=== PATIENT | female | born 1940 | race Hispanic/Latino ===

== ENCOUNTER → 2020-05-01 | Outpatient (CLI) | payer MEDICARE ==
[~2020-05-01] MED LIST: IOHEXOL-350 50ML VIAL IV ONE
== END | disposition home or self-care (01) ==
LOC: RAH 11:36
PROVIDERS: ATTEND Family Medicine
DX: E04.9 Nontoxic goiter, unspecified (principal); I65.23 Occlusion and stenosis of bilateral carotid arteries
CPT/HCPCS: 70492; Q9967

== ENCOUNTER 2020-07-09 14:29 | Inpatient (IN) | payer MEDICARE ==
[2020-07-09 15:34] LABS: BASOPHILS % (AUTO) 0.2 % (0.0-5.0); EOSINOPHILS % (AUTO) 0.3 % (0.0-8.0); HEMATOCRIT 39.3 % (36-48); LYMPHOCYTES % (AUTO) 4.2 % (21.0-51.0); MEAN CORPUSCULAR HEMOGLOBIN 29.5 pg (27.0-33.0); MEAN CORPUSCULAR HGB CONC 34.9 g/dL (32.0-36.0); MEAN CORPUSCULAR VOLUME 84.7 fL (79-99); MONOCYTES % (AUTO) 7.6 % (3.0-13.0); NEUTROPHILS % (AUTO) 86.5 % (40.0-77.0); PLATELET COUNT (AUTO) 533 K/uL (130-400); RED BLOOD CELL COUNT(AUTO) 4.64 MIL/uL (4.00-5.50); RED CELL DISTRIBUTION WIDTH 13.2 % (11.0-15.5)
[2020-07-09 15:55] LABS: CREATININE 0.7 mg/dL (0.5-1.5); POTASSIUM 3.3 mmol/L (3.5-5.1)
[2020-07-09 15:59] LABS: ALBUMIN 2.4 g/dL (3.5-5.0); TOTAL PROTEIN, SERUM 7.5 g/dL (6.0-8.3)
[2020-07-09] MEDS ORDERED: ENOXAPARIN SODIUM 60 MG/0.6 ML SQ ONE (16:28)
[2020-07-09] MEDS ORDERED: METHYLPREDNISOLONE SOD SUCC 40MG/ML 1ML ONE (16:28)
[2020-07-09] MEDS ORDERED: AZITHROMYCIN 500MG+NS 250ML 250 ML IV ONE (16:29)
[2020-07-09] MEDS ORDERED: CEFTRIAXONE SODIUM 1 GM ONE (16:29)
[2020-07-09 18:18] LABS: APPEARANCE,URINE Clear (CLEAR); BILIRUBIN,URINE Negative (NEGATIVE); COLOR,URINE Yellow (YELLOW); GLUCOSE, URINE (UA) Negative (NEGATIVE); KETONES,URINE 40 mg/dL (NEGATIVE); LEUKOCYTE ESTERASE ,URINE Large (NEGATIVE); NITRATE,URINE Negative (NEGATIVE); OCCULT BLOOD,URINE Negative (NEGATIVE); PROTEIN,URINE POS 1+ mg/dL (NEGATIVE)
[2020-07-09 18:53] LABS: BACTERIA,URINE Moderate /HPF (None Seen); RBC,URINE None Seen /HPF (0-1); WBC,URINE 51-100 /HPF (0-1)
[2020-07-09 18:55] VITALS: BP 131/78
[2020-07-09] MEDS ORDERED: DOXYCYCLINE 100MG+NS 250ML IV SCH (19:00)
[2020-07-09] MEDS ORDERED: HYDRALAZINE HCL 20 MG/ML VIAL IV PRN (19:00)
[2020-07-09] MEDS ORDERED: ONDANSETRON HCL 4 MG/2 ML VIAL IVP PRN (19:00)
[2020-07-09] MEDS ORDERED: ERGOCALCIFEROL (VITAMIN D2) 50,000 UNIT CAPSULE PO ONE (19:00)
[2020-07-09] MEDS ORDERED: LACTULOSE 20 GM/30 ML UDCUP PO PRN (19:00)
[2020-07-09] MEDS: CEFTRIAXONE SODIUM 1 GM IVP SCH (19:00)
[2020-07-09 20:52] VITALS: BP 142/87
[2020-07-09] MEDS: ENOXAPARIN SODIUM 60 MG/0.6 ML SQ SCH (21:00)
[2020-07-09] MEDS: LACTATED RINGERS 1000ML 1,000 ML IV SCH (21:04)
[2020-07-09] MEDS: FAMOTIDINE 20MG TAB 20 MG TAB PO SCH (21:11)
[2020-07-09 23:54] VITALS: BP 120/67
[2020-07-10 03:53] VITALS: BP 105/54
[2020-07-10 03:55] LABS: ABG BASE EXCESS 0.1 mmol/L (-2.0-3.0); ABG OXYGEN SATURATION 94.9 % (95.0-99.0); ABG PCO2 37 mmHg (32-45)
[2020-07-10 05:47] LABS: BASOPHILS % (AUTO) 0.3 % (0.0-5.0); HEMATOCRIT 39.3 % (36-48); LYMPHOCYTES % (AUTO) 5.8 % (21.0-51.0); MEAN CORPUSCULAR HEMOGLOBIN 28.9 pg (27.0-33.0); MEAN CORPUSCULAR HGB CONC 34.6 g/dL (32.0-36.0); MEAN CORPUSCULAR VOLUME 83.4 fL (79-99); MONOCYTES % (AUTO) 3.2 % (3.0-13.0); NEUTROPHILS % (AUTO) 89.1 % (40.0-77.0); PLATELET COUNT (AUTO) 562 K/uL (130-400); RED BLOOD CELL COUNT(AUTO) 4.71 MIL/uL (4.00-5.50); RED CELL DISTRIBUTION WIDTH 12.8 % (11.0-15.5); WHITE BLOOD COUNT (AUTO) 7.5 K/uL (4.8-10.8)
[2020-07-10 06:28] LABS: ALANINE AMINOTRANSFERASE 10 U/L (12-78); ALBUMIN 2.1 g/dL (3.5-5.0); ASPARTATE AMINOTRANSFERASE 22 U/L (10-37); BILIRUBIN,DIRECT 0.2 mg/dL (0.0-0.3); BILIRUBIN,TOTAL 0.6 mg/dL (0.2-1.0); CARBON DIOXIDE 25 mmol/L (21-32); CHLORIDE 98 mmol/L (101-111); CREATININE 0.6 mg/dL (0.5-1.5); GLOMERULAR FILTR. RATE CALC 103 mL/min (>60); GLUCOSE,RANDOM 133 mg/dL (70-105); PHOSPHORUS 3.8 mg/dL (2.5-4.9); POTASSIUM 3.7 mmol/L (3.5-5.1); SODIUM SERUM 134 mmol/L (136-145); TOTAL PROTEIN, SERUM 7.3 g/dL (6.0-8.3); UREA NITROGEN, BLOOD 15 mg/dL (7-18)
[2020-07-10] MEDS: ASCORBIC ACID 500 MG TAB PO SCH (08:21)
[2020-07-10] MEDS: ZINC SULFATE 220 CAPSULE PO SCH (08:21)
[2020-07-10] MEDS: FAMOTIDINE 20MG TAB 20 MG TAB PO SCH ×2 (08:21→21:43)
[2020-07-10] MEDS: DOXYCYCLINE HYCLATE 100 MG TABLET PO SCH ×2 (08:21→21:45)
[2020-07-10] MEDS: CEFTRIAXONE SODIUM 1 GM IVP SCH ×2 (08:21→18:35)
[2020-07-10] MEDS: ENOXAPARIN SODIUM 60 MG/0.6 ML SQ SCH ×2 (08:23→21:45)
[2020-07-10] MEDS: DEXAMETHASONE SOD PHOSPHATE 4 MG/ML 1ML VIAL IVP SCH (08:24)
[2020-07-10 08:35] VITALS: BP_SYST 135; BP_SYST 156; BP_DIAS 75; BP_DIAS 86
[2020-07-10 12:08] VITALS: BP 136/70
[2020-07-10] MEDS: LACTATED RINGERS 1000ML 1,000 ML IV SCH (15:03)
--- NOTE | 2020-07-10 15:42 | NUR ---
RD NOTIFICATION Pt admitted PUI COVID-19. History DM, HTN. Pt with poor Po intake x 1 week prior to admit. Heart Healthy diet order in place. Monitored labs: BG 158, Alb 2.1. Mild to moderate fat/muscle loss. Pt Height unavailable to calculate Pt nutrition needs Recommend 75gm CCD Recommend Glucerna TID RD to continue to monitor. Please notify as additional nutrition concerns arise. Thank you. Addendum: 07/10/20 at [address] Amended: Links added.
--- NOTE | 2020-07-10 16:13 | NUR ---
02 saturation 1. Patient on 3L sitting up leaning slightly forward 02 sat 93-94 % 2. Lying in supine position on 4L 02 sats 93-94% 3. Prone position 2L 95% 4. Patient instructed to lay in prone position for as many hours as she could tolerate
[2020-07-10 16:48] VITALS: BP 132/56
--- NOTE | 2020-07-10 18:41 | NUR ---
DCP CM unable to meet with pt, called friend William Cui [phone], discussed dc plans. As per friend pt is independent prior to getting sick 2 weeks ago, lives at a rental home alone, friend lives close by. Denies any equipments/services. CM asked friend if pt has any family close by. Friend verbalized the only family he knows is a mother that a few years back and a sister that is in a custodial facility. Feels safe to go back home, pt arranged own needs, pt was still very independent and drives self until recently, but friend and landlord able to assist with transportation as necessary, pt's car is at pt's home. Friend verbalized him and pt's landlord had been friends for many years. Will reassess pt for possible placement once closer to dc if necessary. DC plan to home vs hh/snf. CM to cont to follow up. Addendum: 07/10/20 at 1846 by SAULO LEVY LVN CM Amended: Links added.
[2020-07-10 19:00] VITALS: BP 145/61
--- NOTE | 2020-07-10 20:05 | NUR ---
INFORMED ON-CALL [facility] ( MINI SANTIAGO) REGARDING BLOOD SUGAR RESULT OF PATIENT THAT IS 255 AND WAS 210 AT DAY SHIFT. ORDERED TO PLACE PT ON HYPERGLYCEMIA/ HYPLOGLYCEMIA PROTOCOL WITH 1/2 SS.
[2020-07-10] MEDS ORDERED: DEXTROSE 50%-WATER 50 ML DISP.SYRIN IV PRN (20:15)
[2020-07-10] MEDS ORDERED: GLUCAGON 1MG KIT 1 MG ML IM PRN (20:15)
[2020-07-10] MEDS ORDERED: INSULIN HUMULIN R 100 UNIT/ML 3ML SQ SCH (21:00)
[2020-07-10] MEDS ORDERED: INSULIN HUMULIN R 100 UNIT/ML 3ML ONE (21:40)
[2020-07-11] VITALS: BP 146/75
[2020-07-11] MEDS: ACETAMINOPHEN 325 MG TAB PO PRN (03:31)
[2020-07-11 03:55] VITALS: BP 137/64
[2020-07-11] MEDS: INSULIN HUMULIN R 100 UNIT/ML 3ML SQ SCH ×4 (06:10→21:00)
[2020-07-11] MEDS: CEFTRIAXONE SODIUM 1 GM IVP SCH ×2 (06:10→18:45)
[2020-07-11 08:45] VITALS: BP 144/64
[2020-07-11] MEDS: ENOXAPARIN SODIUM 60 MG/0.6 ML SQ SCH ×2 (09:37→23:38)
[2020-07-11] MEDS: FAMOTIDINE 20MG TAB 20 MG TAB PO SCH ×2 (09:38→23:37)
[2020-07-11] MEDS: DOXYCYCLINE HYCLATE 100 MG TABLET PO SCH ×2 (09:38→23:37)
[2020-07-11] MEDS: DEXAMETHASONE SOD PHOSPHATE 4 MG/ML 1ML VIAL IVP SCH (09:38)
[2020-07-11] MEDS: ASCORBIC ACID 500 MG TAB PO SCH (09:38)
[2020-07-11] MEDS: ZINC SULFATE 220 CAPSULE PO SCH (09:38)
[2020-07-11] MEDS: LACTATED RINGERS 1000ML 1,000 ML IV SCH (11:15)
[2020-07-11 12:30] VITALS: BP 143/62
[2020-07-11 16:34] VITALS: BP 152/69
[2020-07-11 20:00] VITALS: BP 144/83
--- NOTE | 2020-07-11 20:00 | NUR ---
Received the patient Received the patient A/o x3 lying awake in bed with 02 on. Patient is in no acute distress at this time and has no complaints of pain or discomforts. Plan of care and safety precautions reviewed with patient an patient verbalized understanding. Bed in lowest position, 2 side rails up, wheels locked. Patient's personal items and call light are within reach. Will continue with plan of care.
[2020-07-12] VITALS (7 sets, daily range): BP systolic 122–157; BP diastolic 67–80
--- NOTE | 2020-07-12 01:47 | NUR ---
Patient received 2 units of plasma. Patient currently resting.
[2020-07-12 03:20] LABS: ABG BASE EXCESS 3.3 mmol/L (-2.0-3.0); ABG HCO3 25.9 mmol/L (21.0-28.0); ABG OXYGEN SATURATION 91.4 % (95.0-99.0); ABG PCO2 33 mmHg (32-45)
[2020-07-12 04:33] LABS: BASOPHILS % (AUTO) 0.1 % (0.0-5.0); EOSINOPHILS % (AUTO) 0.8 % (0.0-8.0); HEMATOCRIT 38.6 % (36-48); LYMPHOCYTES % (AUTO) 4.3 % (21.0-51.0); MEAN CORPUSCULAR HEMOGLOBIN 28.6 pg (27.0-33.0); MEAN CORPUSCULAR HGB CONC 34.5 g/dL (32.0-36.0); MONOCYTES % (AUTO) 6.1 % (3.0-13.0); NEUTROPHILS % (AUTO) 87.1 % (40.0-77.0); PLATELET COUNT (AUTO) 670 K/uL (130-400); RED BLOOD CELL COUNT(AUTO) 4.65 MIL/uL (4.00-5.50); RED CELL DISTRIBUTION WIDTH 13.2 % (11.0-15.5); WHITE BLOOD COUNT (AUTO) 15.8 K/uL (4.8-10.8)
[2020-07-12 04:56] LABS: ALBUMIN 2.5 g/dL (3.5-5.0); BILIRUBIN,TOTAL 0.4 mg/dL (0.2-1.0); CREATININE 0.7 mg/dL (0.5-1.5); MAGNESIUM 1.5 mg/dL (1.80-2.40); PHOSPHORUS 2.4 mg/dL (2.5-4.9); TOTAL PROTEIN, SERUM 7.5 g/dL (6.0-8.3)
[2020-07-12 05:01] LABS: POTASSIUM 2.9 mmol/L (3.5-5.1)
[2020-07-12] MEDS ORDERED: LIDOCAINE HCL-MPF 1% 2ML VIAL IV PRN (06:30)
[2020-07-12] MEDS ORDERED: POTASSIUM CHLORIDE 10% ELIXIR 20 MEQ/15 ML UDCUP PO PRN (06:30)
[2020-07-12] MEDS ORDERED: POTASSIUM CHLORIDE 20MEQ/100ML 100 ML IV PRN (06:30)
[2020-07-12] MEDS: INSULIN HUMULIN R 100 UNIT/ML 3ML SQ SCH ×4 (07:30→20:31)
[2020-07-12] MEDS: CEFTRIAXONE SODIUM 1 GM IVP SCH ×2 (08:25→20:30)
[2020-07-12] MEDS: DOXYCYCLINE HYCLATE 100 MG TABLET PO SCH ×2 (08:26→20:30)
[2020-07-12] MEDS: ZINC SULFATE 220 CAPSULE PO SCH (08:26)
[2020-07-12] MEDS: DEXAMETHASONE SOD PHOSPHATE 4 MG/ML 1ML VIAL IVP SCH (08:26)
[2020-07-12] MEDS: ASCORBIC ACID 500 MG TAB PO SCH (08:26)
[2020-07-12] MEDS: POTASSIUM CHLORIDE 20 MEQ ERTAB PO PRN ×3 (08:26→15:25)
[2020-07-12] MEDS: LACTATED RINGERS 1000ML 1,000 ML IV SCH (08:27)
[2020-07-12] MEDS: ENOXAPARIN SODIUM 60 MG/0.6 ML SQ SCH ×2 (08:27→20:35)
[2020-07-12] MEDS: FAMOTIDINE 20MG TAB 20 MG TAB PO SCH ×2 (08:27→20:30)
[2020-07-12] MEDS ORDERED: FUROSEMIDE 10 MG/ML 4ML VIAL IV SCH (08:30)
[2020-07-12] MEDS ORDERED: MAGNESIUM 2GM PREMIX 50ML 50 ML IV PRN (11:15)
[2020-07-13 03:32] LABS: ABG BASE EXCESS 2.1 mmol/L (-2.0-3.0); ABG HCO3 26.5 mmol/L (21.0-28.0); ABG OXYGEN SATURATION 89.8 % (95.0-99.0); ABG PCO2 40 mmHg (32-45)
[2020-07-13 03:42] VITALS: BP 119/65
[2020-07-13] MEDS: LACTATED RINGERS 1000ML 1,000 ML IV SCH ×2 (04:43→23:57)
[2020-07-13] MEDS: ACETAMINOPHEN 325 MG TAB PO PRN (04:44)
[2020-07-13] MEDS: CEFTRIAXONE SODIUM 1 GM IVP SCH ×2 (06:17→17:14)
[2020-07-13 07:06] LABS: BASOPHILS % (AUTO) 0.2 % (0.0-5.0); EOSINOPHILS % (AUTO) 1.2 % (0.0-8.0); HEMATOCRIT 39.6 % (36-48); LYMPHOCYTES % (AUTO) 5.8 % (21.0-51.0); MEAN CORPUSCULAR HEMOGLOBIN 28.4 pg (27.0-33.0); MEAN CORPUSCULAR HGB CONC 33.6 g/dL (32.0-36.0); MEAN CORPUSCULAR VOLUME 84.4 fL (79-99); MONOCYTES % (AUTO) 4.2 % (3.0-13.0); NEUTROPHILS % (AUTO) 86.7 % (40.0-77.0); PLATELET COUNT (AUTO) 621 K/uL (130-400); RED BLOOD CELL COUNT(AUTO) 4.69 MIL/uL (4.00-5.50); RED CELL DISTRIBUTION WIDTH 13.7 % (11.0-15.5); WHITE BLOOD COUNT (AUTO) 14.6 K/uL (4.8-10.8)
[2020-07-13] MEDS: INSULIN HUMULIN R 100 UNIT/ML 3ML SQ SCH ×4 (07:30→21:24)
[2020-07-13 07:36] LABS: ALBUMIN 2.3 g/dL (3.5-5.0); BILIRUBIN,TOTAL 0.4 mg/dL (0.2-1.0); CREATININE 0.7 mg/dL (0.5-1.5); MAGNESIUM 2.3 mg/dL (1.80-2.40); PHOSPHORUS 2.9 mg/dL (2.5-4.9); POTASSIUM 4.2 mmol/L (3.5-5.1); TOTAL PROTEIN, SERUM 7.3 g/dL (6.0-8.3)
[2020-07-13 08:00] VITALS: BP 143/72
[2020-07-13] MEDS: FAMOTIDINE 20MG TAB 20 MG TAB PO SCH ×2 (09:53→19:58)
[2020-07-13] MEDS: ZINC SULFATE 220 CAPSULE PO SCH (09:53)
[2020-07-13] MEDS: DOXYCYCLINE HYCLATE 100 MG TABLET PO SCH ×2 (09:53→19:58)
[2020-07-13] MEDS: DEXAMETHASONE SOD PHOSPHATE 4 MG/ML 1ML VIAL IVP SCH (09:53)
[2020-07-13] MEDS: ASCORBIC ACID 500 MG TAB PO SCH (09:53)
[2020-07-13] MEDS: ENOXAPARIN SODIUM 60 MG/0.6 ML SQ SCH ×2 (09:54→19:58)
[2020-07-13 11:19] VITALS: BP 135/76
[2020-07-13 16:00] VITALS: BP 132/66
[2020-07-13 20:05] VITALS: BP 135/73
[2020-07-14 00:27] VITALS: BP 136/74
[2020-07-14 04:00] VITALS: BP 154/72
--- NOTE | 2020-07-14 05:27 | NUR ---
No acute respiratory distress this shift. POX 99% on 10L NRB mask when lying prone. Patient had a restful night.
[2020-07-14] MEDS: CEFTRIAXONE SODIUM 1 GM IVP SCH ×2 (06:04→18:18)
[2020-07-14] MEDS: INSULIN HUMULIN R 100 UNIT/ML 3ML SQ SCH ×4 (07:30→21:25)
[2020-07-14 08:00] VITALS: BP 127/59
[2020-07-14 08:06] LABS: ABG BASE EXCESS 1.1 mmol/L (-2.0-3.0); ABG HCO3 24.5 mmol/L (21.0-28.0); ABG PCO2 35 mmHg (32-45)
[2020-07-14 08:12] LABS: BASOPHILS % (AUTO) 0.2 % (0.0-5.0); EOSINOPHILS % (AUTO) 0.8 % (0.0-8.0); HEMATOCRIT 38.3 % (36-48); MEAN CORPUSCULAR HEMOGLOBIN 28.7 pg (27.0-33.0); MEAN CORPUSCULAR HGB CONC 33.9 g/dL (32.0-36.0); MEAN CORPUSCULAR VOLUME 84.5 fL (79-99); MONOCYTES % (AUTO) 5.9 % (3.0-13.0); NEUTROPHILS % (AUTO) 85.3 % (40.0-77.0); PLATELET COUNT (AUTO) 584 K/uL (130-400); RED BLOOD CELL COUNT(AUTO) 4.53 MIL/uL (4.00-5.50); RED CELL DISTRIBUTION WIDTH 13.5 % (11.0-15.5); WHITE BLOOD COUNT (AUTO) 16.1 K/uL (4.8-10.8)
[2020-07-14 08:29] LABS: ALBUMIN 2.1 g/dL (3.5-5.0); BILIRUBIN,TOTAL 0.3 mg/dL (0.2-1.0); CREATININE 0.7 mg/dL (0.5-1.5); MAGNESIUM 1.9 mg/dL (1.80-2.40); PHOSPHORUS 2.7 mg/dL (2.5-4.9); POTASSIUM 4.1 mmol/L (3.5-5.1); TOTAL PROTEIN, SERUM 6.8 g/dL (6.0-8.3)
[2020-07-14] MEDS: DOXYCYCLINE HYCLATE 100 MG TABLET PO SCH ×2 (09:24→21:04)
[2020-07-14] MEDS: DEXAMETHASONE SOD PHOSPHATE 4 MG/ML 1ML VIAL IVP SCH (09:24)
[2020-07-14] MEDS: ZINC SULFATE 220 CAPSULE PO SCH (09:25)
[2020-07-14] MEDS: FAMOTIDINE 20MG TAB 20 MG TAB PO SCH ×2 (09:25→21:04)
[2020-07-14] MEDS: ASCORBIC ACID 500 MG TAB PO SCH (09:25)
[2020-07-14] MEDS: ENOXAPARIN SODIUM 60 MG/0.6 ML SQ SCH ×2 (09:25→21:04)
[2020-07-14 11:08] VITALS: BP 135/75
[2020-07-14 16:00] VITALS: BP 121/57
[2020-07-14 20:00] VITALS: BP 146/76
[2020-07-14] MEDS: LACTATED RINGERS 1000ML 1,000 ML IV SCH (21:07)
[2020-07-15] VITALS (7 sets, daily range): BP systolic 121–151; BP diastolic 65–76
[2020-07-15 04:33] LABS: ABG BASE EXCESS 2.9 mmol/L (-2.0-3.0); ABG HCO3 25.7 mmol/L (21.0-28.0); ABG OXYGEN SATURATION 88.3 % (95.0-99.0); ABG PCO2 34 mmHg (32-45)
[2020-07-15] MEDS: CEFTRIAXONE SODIUM 1 GM IVP SCH ×2 (06:03→18:37)
[2020-07-15] MEDS: INSULIN HUMULIN R 100 UNIT/ML 3ML SQ SCH ×4 (07:30→20:27)
[2020-07-15 07:44] LABS: MYOGLOBIN 29 ng/mL (10-92); PHOSPHORUS 3.2 mg/dL (2.5-4.9)
[2020-07-15] MEDS: ASCORBIC ACID 500 MG TAB PO SCH (09:42)
[2020-07-15] MEDS: ENOXAPARIN SODIUM 60 MG/0.6 ML SQ SCH ×2 (09:42→20:28)
[2020-07-15] MEDS: FAMOTIDINE 20MG TAB 20 MG TAB PO SCH ×2 (09:42→20:28)
[2020-07-15] MEDS: ZINC SULFATE 220 CAPSULE PO SCH (09:42)
[2020-07-15] MEDS: DOXYCYCLINE HYCLATE 100 MG TABLET PO SCH ×2 (09:42→20:28)
[2020-07-15] MEDS: DEXAMETHASONE SOD PHOSPHATE 4 MG/ML 1ML VIAL IVP SCH (11:15)
--- NOTE | 2020-07-15 14:12 | NUR ---
CM Note: Pt declined [facility] CM spoke to pt discussed [facility] as pt lives alone and not ready to dc home yet. Pt aware facility is free of charge and state funded, no bills will be given to pt. Pt at this time, verbalized she'll think about it, prefers to go back home, verbalized she has friends that is able to assist her at home if needed. Instructed pt to call CM once decision made. CM to cont to follow up.
--- NOTE | 2020-07-15 15:30 | NUR ---
SS prompt: Pt. has no family SW spoke w/CM Margarita Arevalo DCP; possible SNF placement and has spoken to pt's friend William Cui. SW attempted to contact pt. on her cell phone numerous times; no answer. SW spoke w/primary MACKENZIE Das who reports pt. was threatening to leave AMA earlier but is not doing so any longer. SW attempted to speak w/pt. on room telephone, however, per primary nurse, there is no phone in room and pt. does not have her cell phone w/her. CM made aware.
[2020-07-15 16:19] LABS: ABG HCO3 23.2 mmol/L (21.0-28.0); ABG PCO2 34 mmHg (32-45)
[2020-07-16 04:30] VITALS: BP 141/71
[2020-07-16 05:41] LABS: BASOPHILS % (AUTO) 0.2 % (0.0-5.0); EOSINOPHILS % (AUTO) 0.4 % (0.0-8.0); HEMATOCRIT 38.4 % (36-48); LYMPHOCYTES % (AUTO) 5.5 % (21.0-51.0); MEAN CORPUSCULAR HEMOGLOBIN 28.5 pg (27.0-33.0); MEAN CORPUSCULAR HGB CONC 33.9 g/dL (32.0-36.0); MEAN CORPUSCULAR VOLUME 84.2 fL (79-99); NEUTROPHILS % (AUTO) 84.1 % (40.0-77.0); PLATELET COUNT (AUTO) 573 K/uL (130-400); RED BLOOD CELL COUNT(AUTO) 4.56 MIL/uL (4.00-5.50); RED CELL DISTRIBUTION WIDTH 13.4 % (11.0-15.5); WHITE BLOOD COUNT (AUTO) 16.9 K/uL (4.8-10.8)
[2020-07-16 05:58] LABS: ALBUMIN 2.1 g/dL (3.5-5.0); BILIRUBIN,TOTAL 0.4 mg/dL (0.2-1.0); CREATININE 0.7 mg/dL (0.5-1.5); PHOSPHORUS 3.8 mg/dL (2.5-4.9); POTASSIUM 4.4 mmol/L (3.5-5.1); TOTAL PROTEIN, SERUM 7.1 g/dL (6.0-8.3)
[2020-07-16] MEDS: CEFTRIAXONE SODIUM 1 GM IVP SCH (06:10)
[2020-07-16 07:30] VITALS: BP 130/65
[2020-07-16] MEDS: INSULIN HUMULIN R 100 UNIT/ML 3ML SQ SCH ×4 (07:30→20:32)
[2020-07-16] MEDS: ASCORBIC ACID 500 MG TAB PO SCH (08:46)
[2020-07-16] MEDS: ZINC SULFATE 220 CAPSULE PO SCH (08:46)
[2020-07-16] MEDS: DOXYCYCLINE HYCLATE 100 MG TABLET PO SCH ×2 (08:47→20:31)
[2020-07-16] MEDS: FAMOTIDINE 20MG TAB 20 MG TAB PO SCH ×2 (08:47→20:31)
[2020-07-16] MEDS: ENOXAPARIN SODIUM 60 MG/0.6 ML SQ SCH ×2 (08:47→20:33)
[2020-07-16] MEDS: DEXAMETHASONE SOD PHOSPHATE 4 MG/ML 1ML VIAL IVP SCH (08:47)
[2020-07-16 11:00] VITALS: BP 124/65
--- NOTE | 2020-07-16 14:14 | NUR ---
CM Note: still pending pt decision CM spoke to pt follow up on [facility], pt verbalized she's has not decided yet, wants to stay here for duration of treatments for now. CM to cont to follow up.
[2020-07-16 16:00] VITALS: BP 117/68
[2020-07-16 19:30] VITALS: BP 143/77
[2020-07-16 23:54] VITALS: BP 126/73
[2020-07-17 04:00] VITALS: BP 130/74
[2020-07-17 05:16] LABS: ABG BASE EXCESS 1.8 mmol/L (-2.0-3.0); ABG HCO3 25.4 mmol/L (21.0-28.0); ABG OXYGEN SATURATION 83.6 % (95.0-99.0); ABG PCO2 37 mmHg (32-45)
[2020-07-17 07:01] LABS: HEMATOCRIT 40.3 % (36-48); MEAN CORPUSCULAR HEMOGLOBIN 29.1 pg (27.0-33.0); MEAN CORPUSCULAR HGB CONC 34.5 g/dL (32.0-36.0); MEAN CORPUSCULAR VOLUME 84.5 fL (79-99); RED BLOOD CELL COUNT(AUTO) 4.77 MIL/uL (4.00-5.50); RED CELL DISTRIBUTION WIDTH 13.2 % (11.0-15.5); WHITE BLOOD COUNT (AUTO) 20.8 K/uL (4.8-10.8)
[2020-07-17 07:13] LABS: CREATININE 0.6 mg/dL (0.5-1.5); POTASSIUM 4.7 mmol/L (3.5-5.1)
[2020-07-17] MEDS: INSULIN HUMULIN R 100 UNIT/ML 3ML SQ SCH ×2 (07:30→11:29)
[2020-07-17 08:47] VITALS: BP 133/71
[2020-07-17] MEDS: DEXAMETHASONE SOD PHOSPHATE 4 MG/ML 1ML VIAL IVP SCH (08:49)
[2020-07-17] MEDS: ASCORBIC ACID 500 MG TAB PO SCH (08:50)
[2020-07-17] MEDS: ZINC SULFATE 220 CAPSULE PO SCH (08:50)
[2020-07-17] MEDS: DOXYCYCLINE HYCLATE 100 MG TABLET PO SCH (08:50)
[2020-07-17] MEDS: FAMOTIDINE 20MG TAB 20 MG TAB PO SCH (08:50)
[2020-07-17] MEDS: ENOXAPARIN SODIUM 60 MG/0.6 ML SQ SCH (08:52)
[2020-07-17 11:21] VITALS: BP 121/63
== END 2020-07-17 13:30 | disposition left against medical advice (07) | DRG 177 ==
LOC: EDH 14:29 → EDHIP 16:36 → OBSVTOIN 16:36 → 4BH 18:12
PROVIDERS: ADMIT Internal Medicine Critical Care Medicine; ATTEND Internal Medicine Critical Care Medicine
PROC: XW13325 Transfusion of Convalescent Plasma (Nonautologous) into Peripheral Vein, Percutaneous Approach, New Technology Group 5 (ICD-10-PCS; principal; 2020-07-11)
PROC: XW13325 Transfusion of Convalescent Plasma (Nonautologous) into Peripheral Vein, Percutaneous Approach, New Technology Group 5 (ICD-10-PCS; 2020-07-12)
DX: U07.1 COVID-19 (principal); J12.89 Other viral pneumonia; N39.0 Urinary tract infection, site not specified; E87.1 Hypo-osmolality and hyponatremia; E04.9 Nontoxic goiter, unspecified; E11.9 Type 2 diabetes mellitus without complications; R09.02 Hypoxemia; I10 Essential (primary) hypertension; E86.0 Dehydration; Z88.0 Allergy status to penicillin; Z90.49 Acquired absence of other specified parts of digestive tract
CPT/HCPCS: 36415; 36430; 36600; 71045; 80048; 80053; 80076; 81001; 82728; 82803; 82948; 83605; 83735; 83874; 84100; 84132; 84145; 84484; 85025; 85027; 85378; 86140; 86900; 86901; 86927; 87040; 87088; 87426; 93005; 97039; 99291; G0378; J0456; J0696; J1100; J1650; J1815; J1940; J2920; J3475; J3480; J3490; J7120; U0003